=== PATIENT | female | born 1995 | race Caucasian/White ===

== ENCOUNTER 2017-01-29 17:09 | Emergency (ER) | payer MEDICAID ==
[~2017-01-29] VITALS: Ht 154.9 cm; Wt 43.1 kg
[~2017-01-29 17:09] MED LIST: DICLOFENAC 50MG50 MG PO; DICYCLOMINE HCL20 MG PO; IRON TABLETS325 MG OR; MACROBID 100MG100 M1 PO; MOTRIN400 MG PO; NIFEDIPINE 10MG10 MG PO; NOMEDS XX; OMEPRAZOLE20 MG PO; PREDNISONE 20MG20 MG PO; PRENATAL PLUS1 TA1 OR; TESSALON PERLE100 MG PO; ZITHROMAX TRI-500 MG PO; ZITHROMAX Z PA250 MG PO
--- NOTE | 2017-01-29 18:00 | Emergency Room Report ---
History of Present Illness Time Seen by [id number] Presenting Problem in Triage Pt arrived:Walked Presenting Problem:PT REPORTS VOMITTING X1, HAD A BM A COUPLE HOURS AGO-REPORTS IT WAS PAINFUL AND HAD BLEEDING FROM RECTUM AFTER BM. PT DENIES PAIN, NAUSEA. 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 N Clinical Suspician of Infection? N Mental Status: 1 - Regular (Normal Baseline) Sepsis Risk:Low Sepsis Risk Have you (or family members/close friends) recently traveled outside the [place]? N If Yes, where/when: Have you had exposure to infectious disease within the past month? N TB? Other? Specify: Patient vomited twice today. Nonbloody. No abdominal pain. States had a very hard BM that "felt like glass" and when she wiped, she noted some blood. No blood since then. ALLERGIES Coded Allergies: cefaclor (From CECLOR) (Mild, 11/07/16) History Medical History General CAD? No Angina: No MO: No Hypertension? No Hyperlipidemia? No CHF? No DVT? No PE? No COPD? No Asthma? No Anemia? No GERD? No Gastric ulcers? No GI Bleed? No Hernia? No Thyroid Problems? No Hypothyroidism? No CVA? No Seizures? No Diabetes? No Renal Insuffiency? No End Stage Renal Disease? No UTI? No Stones? No GB Disease: No Nephritic Syndrome? No Asplenia? No Hepatitis? No Sickle Cell Disease? No Arthritis? No Migraines? No Cataracts? No Glaucoma? No MRSA? No HIV? No TB? No Anxiety? No Depression? No Cancer? No More? No Immunization Hx DT/Tetanus 5-10 Years Ago Surgical Hx Previous Surgery?Y ORAL SURGERY [employer] Hx LMP 2 Months Ago Social History Smoking Hx Smoker: Current Every Day Smoker Tobacco: Yes Type Cigarettes Packs/day < 1 Pack Alcohol Alcohol: No Review of Systems All Other Systems Reviewed and Negative Gastrointestinal see HPI Physical Exam Vital Signs Vital Signs Date Time Temp Pulse Resp B/P Pulse O2 O2 Flow FiO2 Ox Delivery Rate 01/29 1909 73 18 100/63 97 01/29 1728 98.4 73 18 96/59 97 General Appearance normal appearance, WD/WN, no apparent distress Eye Exam - bilateral eye normal exam, bilateral eye PERRL, bilateral eye EOMI Neck normal inspection, non-tender, supple, full range of motion Respiratory Status Yes: trachea midline, chest symmetrical, non tender chest. No: respiratory distress, tender on palpation, use of accessory muscles, pain on inspiration, pain on expiration, productive cough, non productive cough. Lung Sounds bilateral: normal breath sounds, lungs clear. Cardiovascular normal exam, regular rate/rhythm, no peripheral edema, no gallop, no JVD, no murmur, no rub Gastrointestinal normal bowel sounds, normal exam, non tender, soft, no organomegaly, no guarding, no rebound Rectal normal exam, normal rectal tone (no hemorrhoids; card sent ) Nurse present during exam? Yes (Betty RN) Neurologic alert, normal exam, no motor/sensory deficits, oriented x 3 Skin intact, normal color Medical Decision Making LABS/Meds/Orders Pt receiving controlled substance in ED? No Results/Orders Laboratory Tests 01/29/171929: Stool Occult Blood POSITIVE 01/29/171844: Sodium 141, Potassium 4.1, Chloride 105, Carbon Dioxide 26, BUN 9, Creatinine 0.8, Estimated Creat Clear 76, Estimated GFR (MDRD) 91, Glucose 86, Calcium 9.0, Total Bilirubin 0.5, AST 16, ALT 16, Alkaline Phosphatase 52, Total Protein 7.5, Albumin 4.2, Globulin 3.3 H, Albumin/Globulin Ratio 1.3, WBC 9.3, RBC 4.24, Hgb 13.6, Hct 41.4, MCV 97.7, RDW 12.7, Plt Count 244, MPV 7.4, Gran % 68.8, Gran # 6.4, Lymphocytes % 26.3, Monocytes % 4.2, Eosinophils % 0.4, Basophils % 0.4, Lymphocytes # 2.4, Monocytes # 0.4, Eosinophils # 0.0, Basophils # 0.0, PUBS MCHC 33.0, MCH 32.2 H 01/29/171829: Urine Color YELLOW, Urine Appearance CLEAR, Urine pH 6.0, Ur Specific [place] >= 1.030, Urine Protein NEGATIVE, Urine Ketones NEGATIVE, Urine Blood 2+ H, Urine Nitrate NEGATIVE, Urine Bilirubin NEGATIVE, Urine Urobilinogen 0.2, Ur Leukocyte Esterase NEGATIVE, Urine RBC 5-10, Ur Squamous Epith Cells 5-10, Urine Mucus 4+, Urine Glucose NEGATIVE Orders Procedure Date/time Status STOOL OCCULT BLOOD 01/29 1830 Complete URINALYSIS/COMPLETE 01/29 1759 Complete URINE 01/29 1759 Complete CBC WITH AUTO DIFF 01/29 1759 Complete CHEM 12 PROFILE 01/29 1759 Complete Departure Departure Disposition DC Home or Self Care(routine) Clinical Impression Primary Impression: Vomiting Qualifiers: Vomiting type: unspecified Vomiting Intractability: non-intractable Nausea presence: without nausea Qualified Code: R11.11 - Vomiting without nausea Condition STABLE Referrals Yuniel HYLTON,Lina Johnson (Family) Patient Instructions DI for Vomiting -- Adult Additional Instructions There was a small amount of blood in your stool and you will need to be seen by Dr. Brice for follow up for that although it may be caused by having a forceful bowel movement; Rx Zofran; avoid Ibuprofen. Clear liquids overnight. Discharge Counseling Counseled pt/family regarding diagnosis, test results, medications/RX, home care, follow up needs Prescriptions Current Visit Scripts Ondansetron (Zofran 4MG Odt) 4 MG PO Q6HP PRN NAUSEA AND VOMITING #10 ODT ED Critical Care Critical Care No at 1942
--- OUTSIDE RECORDS SUMMARY | 2017-01-29 18:05 | External Medical Summary Rpt ---
Author Author , TALON Gardner TALON Address Unknown Phone [email or web address] Care Team Providers Care Civil Preparedness Officer Name Role Phone MINERVA PALACIOS MD, Unavailable Unavailable MINERVA PALACIOS MD Purpose Continuity of Care Document - 05-21-2013 through 2016 Problems Code Diagnosis DOS Provider Status 305.1 305.1 05-21-2013 [place] TOBACCO USE [facility] 564.1 564.1 05-21-2013 [place] IRRITABLE [facility] SYNDROME 789.07 789.07 05-21-2013 [facility] GENERALIZED Allergies, Adverse Reactions, Alerts Type Drug Allergy Adverse Reaction to Substance Substance Reaction Severity Cefaclor I-RASH Intermediate Medications Na ND Rx Da Fi Fi Am Da Di Ph RX Ph St me C No te ll ll ou ys ag ar # ys at rm s nt no ma ic us Or Da si cy ia de te s n re d Sa 63 11 0 No li 80 -1 ne 70 7- Lo 10 20 ng Fl 07 13 er us 5 h Ac 10 ti ML ve Sy ri ng e KE 00 11 0 No TO 40 -1 RO 93 7- Lo LA 79 20 ng C 50 13 er 30 1 Ac MG ti /M ve L AL Vital Signs 05-21-2013 17:17 Name Value Interpretat Reference Comment ion Range Body 98.3 [degF] Temperature BP 63 mm[Hg] Diastolic BP Systolic 99 mm[Hg] Heart 87 /min Rate/Pulse O2% 100 % Respiratory 20 /min Rate 05-21-2013 16:35 Name Value Interpretat Reference Comment ion Range BP 67 mm[Hg] Diastolic BP Systolic 105 mm[Hg] Heart 78 /min Rate/Pulse O2% 98 % Respiratory 20 /min Rate Results Labs Lab Lab Date Result Refere Interp Status Commen Order Detail nces retati t Range on B-HCG Ur Ql (05-21-2013 16:35) B-HCG 11-17-2 NEGATIV NEG complet Ur Ql 013 E ed 16:35 URINALYSIS/COMPLETE (05-21-2013 16:35) URINE 11-17-2 YELLOW YELLOW complet COLOR 013 ed 16:35 URINE 11-17-2 Sl CLEAR complet APPEARA 013 Cloudy ed NCE 16:35 URINE 11-17-2 NEGATIV NEG complet GLUCOSE 013 E ed - 16:35 DIPSTIC K URINE 11-17-2 NEGATIV NEG complet BILIRUB 013 E ed IN - 16:35 DIPSTIC K URINE 11-17-2 NEGATIV NEG complet KETONE 013 E mg/dL ed 16:35 URINE 11-17-2 1.025 1.005-1 complet SPECIFI 013 UNK .030 ed C 16:35 GRAVITY URINE 11-17-2 NEGATIV NEG complet BLOOD 013 E ed 16:35 URINE 11-17-2 7.0 UNK 5.0-8.5 complet PH 013 ed 16:35 URINE 11-17-2 NEGATIV NEG complet PROTEIN 013 E mg/dL ed - 16:35 DIPSTIC K URINE 11-17-2 1.0 NEG complet UROBILI 013 E.U./dL ed NOGEN - 16:35 DIPSTIC K URINE 11-17-2 NEGATIV NEG complet NITRATE 013 E ed - 16:35 DIPSTIC K URINE 11-17-2 NEGATIV NEG complet LEUK 013 E ed ESTERAS 16:35 E URINE 11-17-2 OCC 0 complet RBC 013 rbc/hpf ed 16:35 URINE 11-17-2 OCC O complet WBC 013 wbc/hpf ed 16:35 URINE 11-17-2 5-10 0-5 complet SQUAMOU 013 #/hpf ed S CELLS 16:35 URINE 11-17-2 2+ OCC complet MUCUS 013 ed 16:35 COMPREHENSIVE METABOLIC PANEL (05-21-2013 16:25) Glucose 11-17-2 84 74-106 complet 013 mg/dL ed Bld-mCn 16:25 c BUN 11-17-2 12 7-18 complet Bld-mCn 013 mg/dL ed c 16:25 Creat 11-17-2 0.9 0.6-1.0 complet SerPl-m 013 mg/dL ed Cnc 16:25 ESTIMAT 11-17-2 65 50-200 complet ED 013 ML/MIN ed CREATIN 16:25 INE CLEARAN CE Sodium 05-21-2 141 136-145 complet SerPl-s 013 mmoL/L ed Cnc 16:25 Potassi 17-2 3.8 3.5-5.1 complet um 013 mmoL/L ed SerPl-s 16:25 Cnc Chlorid 17-2 105 98-107 complet e 013 mmoL/L ed SerPl-s 16:25 Cnc CO2 17-2 29 21.0-32 complet SerPl-s 013 mmoL/L .0 ed Cnc 16:25 Calcium -17-2 8.5 8.5-10. complet 013 mg/dL 1 ed SerPl-m 16:25 Cnc Prot 17-2 7.5 6.4-8.2 complet SerPl-m 013 gm/dL ed Cnc 16:25 Albumin 17-2 4.1 3.4-5.0 complet 013 gm/dL ed SerPl-m 16:25 Cnc Globuli 17-2 3.4 1.3-3.2 complet n 013 gm/dL ed Ser-mCn 16:25 c Albumin 17-2 1.2 UNK 1.1-1.8 complet /Glob 013 ed SerPl-m 16:25 Rto Bilirub 17-2 0.5 0.2-1.0 complet 013 mg/dL ed SerPl-m 16:25 Cnc AST -17-2 14 U/L 15-37 complet SerPl-c 013 ed Cnc 16:25 ALT -17-2 27 U/L 30-65 complet SerPl-c 013 ed Cnc 16:25 ALP 11-17-2 88 U/L 50-136 complet SerPl-c 013 ed Cnc 16:25 LIPASE (05-21-2013 16:25) LIPASE -17-2 98 U/L 73-393 complet 013 ed 16:25 CBC with AUTO DIFF (05-21-2013 16:25) WBC # 11-17-2 11.1 4.5-13. complet Bld 013 K/MM3 0 ed Auto 16:25 RBC # 11-17-2 4.56 4.2-5.4 complet Bld 013 M/mm3 ed Auto 16:25 Hgb 11-17-2 14.3 12.2-16 complet Bld-mCn 013 g/dL .2 ed c 16:25 Hct Fr 11-17-2 42.3 % 37.0-47 complet Bld 013 .0 ed 16:25 MCV RBC 11-17-2 92.8 fl 82.2-97 complet 013 .8 ed 16:25 MCH RBC 11-17-2 31.4 pg 27-31.2 complet Qn 013 ed Auto 16:25 MEAN 11-17-2 33.9 31.8-35 complet CORPUSC 013 g/dl .4 ed ULAR 16:25 HGB CONC RDW RBC 11-17-2 13.7 % 11.5-17 complet Auto 013 .5 ed 16:25 Platele 11-17-2 240 142-424 complet t Bld 013 K/mm3 ed Ql 16:25 Manual MEAN 11-17-2 7.0 fl 7.4-10. complet PLATELE 013 4 ed T 16:25 VOLUME Granulo 11-17-2 68.4 % 37.0-80 complet cytes 013 .0 ed Fr Bld 16:25 Auto LYMPH % 11-17-2 21.5 % 10-50.0 complet 013 ed 16:25 Monocyt 11-17-2 6.9 % 1.7-9.3 complet es Fr 013 ed Bld 16:25 Auto Eosinop 11-17-2 2.6 % 0.1-12. complet hil Fr 013 0 ed Bld 16:25 Auto Basophi 11-17-2 0.6 % 0.1-2.0 complet ls Fr 013 ed Bld 16:25 Auto Granulo 11-17-2 7.6 1.8-7.8 complet cytes # 013 K/mm3 ed Bld 16:25 Auto Lymphoc 11-17-2 2.4 0.7-4.5 complet ytes Fr 013 K/mm3 ed Bld 16:25 Auto Monocyt 11-17-2 0.8 0.1-1.0 complet es # 013 K/mm3 ed Bld 16:25 Auto Eosinop 11-17-2 0.3 0.0-0.4 complet hil # 013 K/mm3 ed Bld 16:25 Auto Basophi 11-17-2 0.1 0-0.2 complet ls # 013 K/MM3 ed Bld 16:25 Auto Encounters Encounter Start End Date Code Location Performer Type Date Emergency ODILON PALACIOS MD (ER) 3 16:38 3 17:21 [facility]
--- OUTSIDE RECORDS SUMMARY | 2017-01-29 18:05 | External Medical Summary Rpt ---
Demographics Preferred Language Amharic Marital Status Unknown Restorationist Affiliation Unknown Race Unknown Ethnic Group Unknown Author Author , TALON HANLEY Address Unknown Phone Immunization Unable to retrieve immunization data due to connection failure with Immunization Registry. Please try again later.
--- OUTSIDE RECORDS SUMMARY | 2017-01-29 18:05 | External Medical Summary Rpt ---
Demographics Preferred Language Thai Marital Status Unknown Protestant Affiliation Unknown Race Unknown Ethnic Group Unknown Author Author , TALON HANLEY Address Unknown Phone Immunization Unable to retrieve immunization data due to connection failure with Immunization Registry. Please try again later.
--- OUTSIDE RECORDS SUMMARY | 2017-01-29 18:05 | External Medical Summary Rpt ---
Demographics Preferred Language Malagasy Marital Status Unknown Rastafarian Affiliation Unknown Race Unknown Ethnic Group Unknown Author Author TALON Address Unknown Phone [email or web address] Purpose Continuity of Care Document - through 2016
--- OUTSIDE RECORDS SUMMARY | 2017-01-29 18:05 | External Medical Summary Rpt ---
Author Author TALON Altamirano, [employer] Address Unknown Phone Unavailable
--- OUTSIDE RECORDS SUMMARY | 2017-01-29 18:05 | External Medical Summary Rpt ---
Author Author , TALON Gardner TALON Address Unknown Phone [email or web address] Care Team Providers Care Homicide Squad Lieutenant Name Role Phone MINERVA PALACIOS MD, Unavailable Unavailable MINERVA PALACIOS MD Purpose Continuity of Care Document - 05-21-2013 through 2016 Problems Code Diagnosis DOS Provider Status 305.1 305.1 05-21-2013 [place] TOBACCO USE [facility] 564.1 564.1 05-21-2013 [place] IRRITABLE [facility] SYNDROME 789.07 789.07 05-21-2013 [facility] GENERALIZED Allergies, Adverse Reactions, Alerts Type Drug [...] PALACIOS MD (ER) 3 16:38 3 17:21 [facility]
--- OUTSIDE RECORDS SUMMARY | 2017-01-29 18:05 | External Medical Summary Rpt ---
Demographics Preferred Language Uruguayan Marital Status Unknown Tenriism Affiliation Unknown Race Unknown Ethnic Group Unknown Author Author TALON Address Unknown Phone [email or web address] Purpose Continuity of Care Document - through 2016
[2017-01-29 19:00] LABS: HEMOGLOBIN 13.6 g/dL (12.2-16.2); LYMPH # 2.4 K/mm3 (0.7-4.5); LYMPH % 26.3 % (10-50.0)
[2017-01-29 19:20] LABS: URINE BILIRUBIN - DIPSTICK NEGATIVE (NEG); URINE BLOOD 2+ (NEG)
[2017-01-29] MEDS ORDERED: ZOFRAN ODT4 MG PO (19:21)
[2017-01-29 19:37] LABS: STOOL OCCULT BLOOD POSITIVE (NEG)
[2017-01-29 19:52] VITALS: BP 100/63
== END 2017-01-29 19:52 | disposition home or self-care (01) ==
LOC: ER 17:09
PROVIDERS: Emergency Medicine
DX: R11.11 Vomiting without nausea (principal); K62.5 Hemorrhage of anus and rectum; Z72.0 Tobacco use
CPT/HCPCS: G0328